=== PATIENT | male | born 1990 | race Caucasian/White ===

== ENCOUNTER 2022-04-10 11:35 | Emergency (ER) | payer OTHER ==
[2022-04-10 11:48] VITALS: BP 106/60; PULSE 82; RESP 18; TEMP 99.2; BMI 24.3
[2022-04-10] MEDS ORDERED: SODIUM CHLORIDE 1,000 ML IV STA (13:00)
[2022-04-10 13:40] LABS: BASO % 0.5 % (0-2.0); EOS % 0.1 % (0-4.5); HEMATOCRIT 44.1 % (35.4-49); HEMOGLOBIN 14.5 GM/dL (11.7-16.9); LYMPH % 12.4 % (8-40); MCH 30.7 pg (25.7-33.7); MCHC 32.8 g/dl (32.0-35.9); MEAN CELL VOLUME 93.4 fl (80-96); MEAN PLT VOLUME 7.9 fl (7.5-11.1); MONO % 7.7 % (3.8-10.2); NEUT % 79.3 % (42.8-82.8); PLATELET COUNT 297 10^3/uL (134-434); RBC 4.72 M/mm3 (4.00-5.60); RDW 11.6 % (11.9-15.9); WHITE BLOOD COUNT 9.5 K/mm3 (4.0-10.0)
[2022-04-10 14:08] LABS: CALCIUM 9.5 mg/dL (8.5-10.1)
[2022-04-10 14:09] LABS: ALBUMIN 4.5 g/dl (3.4-5.0); MAGNESIUM 2.5 mg/dL (1.8-2.4)
[2022-04-10 14:11] LABS: BLOOD UREA NITROGEN 9.6 mg/dL (7-18)
[2022-04-10 14:13] LABS: BILIRUBIN,TOTAL 0.7 mg/dL (0.2-1); TOT PROT 7.9 g/dl (6.4-8.2)
[2022-04-10 14:15] LABS: CREATININE 0.9 mg/dL (0.55-1.3)
== END 2022-04-10 14:50 | disposition home or self-care (01) ==
LOC: JER 11:35
PROC: 3E0337Z Introduction of Electrolytic and Water Balance Substance into Peripheral Vein, Percutaneous Approach (ICD-10-PCS; principal; 2022-04-10)
DX: R00.2 Palpitations (principal)
CPT/HCPCS: 36415; 71046-TC-FY; 80053; 83735; 84439; 84443; 84481; 84484; 85025; 85379; 93005; 93010; 99285-25